=== PATIENT | female | born 2000 | race Caucasian/White ===

== ENCOUNTER → 2023-07-21 10:47 | Outpatient (CLI) | payer OTHER, SELFPAY ==
--- NOTE | 2023-07-21 10:49 | DI.US.S_ITS ---
PROCEDURE: US OB LIMITED INDICATIONS: RE-EVALUATE HEART, RUE OUTSIDE/PRIOR DATING DATA: Last menstrual period (LMP): 02/08/2023. LMP-based estimated date of delivery (NARINDER): 11/15/2023. First dating scan (date and location): 03/30/2023. Estimated date of delivery (NARINDER) from first dating scan: 11/17/2023 The calculations are made using the working NARINDER of 11/15/2023. TECHNIQUE: Real-time scanning was performed of the fetus, with image documentation and biometric measurements. Biophysical profile was also obtained. Endovaginal scanning: None COMPARISON: None. FINDINGS: General: A single living intrauterine gestation is present. Presentation: Breech. Placenta: Placental position is posterior , without previa. Amniotic fluid index: 6.2 cm, normal range is 5-24 cm. Single deepest vertical pocket is 6.2 cm. heart rate: 152 beats per minute. Maternal cervical canal: 3.6 cm long. Normal lower limit is 2.5 cm. Clinically estimated gestational age: 23 week 2 day anatomy: Cardiac four-chamber view, cardiac outflow tracks, and right upper extremity IMPRESSION: Single live intrauterine consistent with 23 week 2 day gestation. Normal heart and right upper extremity views. Approved by: Christian Haddad M.D. on 07/21/2023 at 17:54
== END ==
LOC: US 10:48
PROVIDERS: Referring Provider Student in an Organized Health Care Education/Training Program; Visit Provider Student in an Organized Health Care Education/Training Program
DX: Z34.82 Encounter for supervision of other normal pregnancy, second trimester (principal); Z3A.23 23 weeks gestation of pregnancy
CPT/HCPCS: 76815

== ENCOUNTER 2023-07-26 20:46 | Emergency (ER) | payer OTHER, SELFPAY ==
[2023-07-26 20:54] VITALS: BP 119/67; PULSE 117; RESP 24; TEMP 36.9; O2SAT 97; BMI 34.7
[2023-07-26 21:36] LABS: Strep Grp A by PCR Rapid Negative (Negative)
[2023-07-26 22:08] LABS: Influenza A - CEPHEID Flu A NEGATIVE (NEGATIVE); Influenza B - CEPHEID Flu B NEGATIVE (NEGATIVE); Respiratory Syncytial Virus POSITIVE (Negative)
[2023-07-26 22:10] LABS: COVID-19 CEPHEID 4-PLEX PCR Negative (Negative)
--- NOTE | 2023-07-26 22:44 | ED.SOB ---
HPI - SOB/Dyspnea General Chief Complaint: Shortness of Breath/Dyspnea Stated Complaint: T-2/ HX Asthma/back/belly pain/SOB/24WKS pregs. Time Seen by Provider: 07/26/23 22:13 Source: patient Mode of arrival: Ambulatory History of Present Illness HPI Narrative: 23-year-old female at 24 weeks gestational age presents for shortness of breath and abdominal pain. Patient states that her son at home tested positive for RSV last week and she thinks she may have caught it. Her abdomen hurts from coughing and she feels mildly short of breath. She has a history of asthma in his concerned that the RSV may be affecting her asthma. Denies vaginal bleeding, contractions, loss of fluids. Related Data Home Medications Medication Instructions Recorded Confirmed albuterol sulfate 90 mcg/actuation 2 puff inhalation Q6H PRN 07/13/23 07/23/23 aerosol inhaler cetirizine 10 mg tablet (Zyrtec) 10 mg PO DAILY PRN 07/13/23 07/23/23 vit no.95-ferrous 1 tab PO DAILY 07/13/23 07/23/23 fumarate 28 mg-folic acid 800 mcg tablet ( Multivitamins) Allergies Allergy/AdvReac Type Severity Reaction Status Date / Time shellfish derived Allergy Intermediate Rash Verified 07/26/23 21:03 Influenza Virus Vaccines AdvReac Intermediate Asthma Verified 07/26/23 21:03 flare up Review of Systems Review of Systems Narrative: See HPI Patient History Medical History Migraine with aura Tibia fracture Surgical History No pertinent past surgical history Family History Grandmother Breast cancer Mother Iron deficiency anemia Asthma GERD (gastroesophageal reflux disease) Father Hyperlipidemia Hypertension Asthma Sister GERD (gastroesophageal reflux disease) Brother GERD (gastroesophageal reflux disease) Social History marital status: number of children: 1 household members: spouse, family (sister) and children lives independently: Yes caregiver/support person: No housing: [facility] ([facility]) pets and animals: No education level: high school occupational status: unemployed current occupational exposures/hazards: No special yessi needs: No travel history: recent (domestic only) seatbelt use: always water heater temp set < 120 deg: Yes working smoke detector in home: Yes fire extinguisher in home: No (counseled to get one) carbon monox detector in home: Yes firearms in home: No do you feel safe at home: Yes Smoking Status: Never smoker second hand exposure: No alcohol intake: never substance use type: does not use during the past year weight has: increased > 10 lbs well-balanced diet: daily or most days daily servings fruits/ve or more times/day caffeine: Yes (occasional AM cup coffee) Type(s) of exercise: walking Smoking Status: Never smoker alcohol intake frequency: 0-2 drinks per day Substance Use Type: does not use Exam Initial Vital Signs Initial Vital Signs: Vital Signs Temperature 98.4 F 07/26/23 20:54 Pulse Rate 117 H 07/26/23 20:54 Respiratory Rate 24 07/26/23 20:54 Blood Pressure 119/67 07/26/23 20:54 Pulse Oximetry 97 07/26/23 20:54 Oxygen Delivery Method Room Air 07/26/23 20:54 Const: Awake, alert, no acute distress, nontoxic appearing Cardiac: Tachycardia, regular rhythm RESP: unlabored, clear bilaterally, no wheezing GI: Soft, nontender, nondistended, no rebound, no guarding MSK: Atraumatic, full range of motion, pulses equal, no swelling Skin: Warm, Dry, intact, no rashes Neuro: AO x3, CN II-XII grossly intact, moves all extremities Course Orders Ordered: ED Orders 07/26/23 22:44 EKG-12 Lead Stat 07/26/23 22:50 CBC Auto Diff [Complete Blood Count AUTO DIFF] Stat CMP [Comprehensive Metabolic Panel] Stat Troponin & CK Cardiac Panel Stat 07/27/23 00:09 Urine Microscopic Stat Discontinued Medications Sodium Chloride (Normal Saline 0.9%) 1,000 mls @ 1,000 mls/hr IV BOLUS ONE Stop: 07/26/23 23:41 Last Infusion: 07/26/23 23:59 Dose: Infused Documented By: Admin: 07/26/23 22:55 Dose: 1,000 mls/hr Documented By: SB Vital Signs Vital signs: Vital Signs - 8 hr 07/27/23 00:37 07/27/23 00:37 Pulse Rate 104 H Respiratory Rate 16 Blood Pressure 104/69 Pulse Oximetry 99 Oxygen Delivery Method Room Air MDM - SOB/Dyspnea Differential Diagnosis Differential diagnosis: Likely acute exacerbation of chronic obstructive airways disease, congestive heart failure and community acquired pneumonia Lab Data 07/26/23 22:50 07/26/23 22:50 Labs: Lab Results 07/26/23 07/26/23 07/26/23 Range/Units 21:10 22:50 23:37 WBC 10.5 (4.5-11.0) X10^3/uL RBC 4.12 (4.0-5.2) X10^6/uL Hgb 12.0 (12.0-16.0) g/dL Hct 35.8 L (36-46) % MCV 86.9 (80-100) fL MCH 29.1 (26-34) PG MCHC 33.5 (30-36) % RDW 14.0 (11.6-14.8) % Plt Count 228 (150-400) X10^3/uL Neut % (Auto) 71.1 (50-75) % Lymph % (Auto) 10.0 L (25-40) % [place] % (Auto) 8.8 (3-14) % Eos % (Auto) 9.5 H (2-4) % Baso % (Auto) 0.6 (0-2) % Neut # (Auto) 7500 H (4538-9385) /uL Lymph # (Auto) 1100 (6275-6138) /uL [place] # (Auto) 900 (0-900) /uL Eos # (Auto) 1000 H (0-450) /uL Baso # (Auto) 100 (0-100) /uL Sodium 134 L (137-145) mmol/L Potassium 3.7 (3.4-5.1) mmol/L Chloride 107 (98-107) mmol/L Carbon Dioxide 21 L (22-32) mmol/L BUN 5 L (7-17) mg/dL Creatinine 0.42 L (0.52-1.04) mg/dL Estimated GFR > 60 (>60) mL/min BUN/Creatinine Ratio 11.9 (6-22) Glucose 86 (70-100) mg/dL Calcium 9.0 (8.4-10.2) mg/dL Total Bilirubin 0.7 (0.2-1.3) mg/dL AST 26 (14-36) IU/L ALT 24 (<35) IU/L Alkaline Phosphatase 106 (38-126) U/L Total Creatine Kinase 223 H (30-135) U/L Troponin I < 0.012 (0.01-0.034) ng/mL Total Protein 7.0 (6.3-8.2) g/dL Albumin 3.8 (3.5-5.0) g/dL Globulin 3.2 (1.7-4.1) g/dL Albumin/Globulin Ratio 1.2 (1.0-2.8) Urine RBC None seen (0-5/HPF) Urine WBC None seen (0-5/HPF) Ur Squamous Epith Cells 0-1 /hpf (0-5/HPF) Urine Bacteria None seen (None) Ur Culture Indicated? Cult not indicated Vol Urine Centrifuged 10ml (spun) SARS-CoV-2 (PCR) Negative (Negative) Influenza A (RT-PCR) Flu a negative (NEGATIVE) Influenza B (RT-PCR) Flu b negative (NEGATIVE) RSV (PCR) Positive A (Negative) Group A Strep (PCR) Negative (Negative) Urine Dip Bedside Urine Glucose Negative Bedside Urine Bilirubin - Negative Bedside Urine Ketone +/- 5 Urine Specific [place] 1.005 Bedside Urine Occult Blood - Negative Bedside Urine pH 7.0 Bedside Urine Protein - Negative Bedside Urine Urobilinogen - Negative Bedside Urine Nitrite - Negative Bedside Urine Leukocytes - Negative Esterase MDM Narrative Medical decision making narrative: Well-appearing patient with upper respiratory symptoms, states that her abdomen and back are sore from all of her coughing. Laboratory work is unremarkable, troponins undetectable, EKG normal sinus rhythm without concerning findings. Lungs are clear to auscultation bilaterally and she was saturating well on room air. Patient advised of lab findings, she was positive for RSV which is likely contributing to her symptoms. Heart tones obtained by nursing staff prior to departure. Discharge Plan Departure Patient Disposition: Home Clinical Impression: Respiratory syncytial virus (RSV) Instructions: DI for Cough -- Adult Activity Restrictions/Additional Instructions: You may continue to take [id number] cough and cold medications provided that they are safe in . Follow up as usual with your OBGYN. Prescriptions: No Action PNV cmb#24-ferrous fumarate-FA [ Multivitamins] 28 mg iron- 800 mcg tablet 1 tab PO DAILY albuterol sulfate 90 mcg/actuation HFA aerosol inhaler 2 puff inhalation Q6H PRN cetirizine [Zyrtec] 10 mg tablet 10 mg PO DAILY PRN Referrals: ProviderElie [Primary Care Provider] - Stand Alone Forms: Patient Portal/API
[2023-07-26] MEDS: SODIUM CHLORIDE 0.9% 1,000 ML 1000 ML IV (22:55)
[2023-07-26 23:03] LABS: Add Manual Diff / Slide Review NO; Basophils Absolute Auto 100 /uL (0-100); Basophils Percent Auto 0.6 % (0-2); Eosinophils Absolute Auto 1000 /uL (0-450); Eosinophils Percent Auto 9.5 % (2-4); Hematocrit 35.8 % (36-46); Lymphocytes Absolute Auto 1100 /uL (1100-4500); Mean Corpuscular HGB Conc 33.5 % (30-36); Mean Corpuscular Hemoglobin 29.1 PG (26-34); Mean Corpuscular Volume 86.9 fL (80-100); Monocytes Absolute Auto 900 /uL (0-900); Monocytes Percent Auto 8.8 % (3-14); Neutrophils Absolute Auto 7500 /uL (1500-7000); Neutrophils Percent Auto 71.1 % (50-75); Platelet Count 228 X10^3/uL (150-400); Red Blood Cell Count 4.12 X10^6/uL (4.0-5.2); White Blood Cell Count 10.5 X10^3/uL (4.5-11.0)
[2023-07-26 23:31] LABS: Alanine Aminotransferase 24 IU/L (<35); Albumin 3.8 g/dL (3.5-5.0); Albumin Globulin Ratio 1.2 (1.0-2.8); Alkaline Phosphatase 106 U/L (38-126); Aspartate Aminotransferase 26 IU/L (14-36); BUN Creatinine Ratio 11.9 (6-22); Bilirubin Total 0.7 mg/dL (0.2-1.3); Blood Urea Nitrogen 5 mg/dL (7-17); Carbon Dioxide 21 mmol/L (22-32); Chloride 107 mmol/L (98-107); Creatine Kinase 223 U/L (30-135); Estimated Glomerular Filt Rate > 60 mL/min (>60); Globulin 3.2 g/dL (1.7-4.1); Glucose 86 mg/dL (70-100); HEMOLYSIS < 15 (0-50); Potassium 3.7 mmol/L (3.4-5.1); Sodium 134 mmol/L (137-145)
[2023-07-26 23:42] LABS: Troponin I < 0.012 ng/mL (0.01-0.034)
[2023-07-27 00:26] LABS: Bacteria Urine None Seen; Culture Indicated Urine Cult Not Indicated; RBC Urine None Seen (0-5/HPF); Squamous Epithelial Cell Urine 0-1 /HPF (0-5/HPF); Urine Volume 10mL (spun); WBC Urine None Seen (0-5/HPF)
[2023-07-27 00:37] VITALS: BP 104/69; PULSE 104; RESP 16; O2SAT 99
== END 2023-07-27 00:47 | disposition home or self-care (01) ==
PROVIDERS: Emergency Provider Emergency Medicine
DX: O99.512 Diseases of the respiratory system complicating pregnancy, second trimester (principal); J98.8 Other specified respiratory disorders; B97.4 Respiratory syncytial virus as the cause of diseases classified elsewhere; Z3A.24 24 weeks gestation of pregnancy
CPT/HCPCS: 0241U; 36415; 80053; 81003; 81015; 82550; 84484; 85025; 87070; 87651; 93005; 99283; 99284